=== PATIENT | male | born 1945 | race African-American/Black ===

== ENCOUNTER 2025-03-05 16:18 | Emergency (ER) | payer MEDICARE ==
[~2025-03-05] VITALS: Ht 160 cm; Wt 70.0 kg
[2025-03-05 16:39] VITALS: TEMP 98.2
[2025-03-05 19:32] LABS: PLATELET COUNT (AUTO) 257 K/uL (150-450); RED BLOOD CELL COUNT(AUTO) 4.76 MIL/uL (4.50-5.90); RED CELL DISTRIBUTION WIDTH 13.6 % (11.5-14.5); WHITE BLOOD COUNT (AUTO) 8.3 K/uL (4.5-11.0)
[2025-03-05 19:42] LABS: CALCIUM, TOTAL 9.3 mg/dL (8.8-10.5); CREATININE 0.95 mg/dL (0.60-1.30); GLOMERULAR FILTR. RATE CALC > 60 mL/min (>60); GLUCOSE,RANDOM 87 mg/dL (70-110); SODIUM SERUM 139 mmol/L (136-145); UREA NITROGEN, BLOOD 9 mg/dL (7-18)
[2025-03-05] MEDS: POVIDONE-IODINE 10% 15 ML SOLUTION UD TP ONE (20:53)
[2025-03-05] MEDS: LIDOCAINE 1% 10 ML VIAL ID ONE (20:55)
[2025-03-05] MEDS: SULFAMETHOX/TRIMETH DS 800-160 MG/TABLET PO ONE (20:55)
[2025-03-05] MEDS: ACETAMINOPHEN 500 MG TABLET PO ONE (20:56)
[2025-03-05] MEDS ORDERED: SULF1TAB94 PO (21:29)
[2025-03-05] MEDS ORDERED: IBUP-1492 PO (21:29)
[2025-03-05] MEDS ORDERED: CLIN-26 PO (21:29)
[2025-03-05 21:40] VITALS: BP 156/78; PULSE 62; RESP 18; O2SAT 97
== END 2025-03-05 21:54 | disposition home or self-care (01) ==
LOC: EMS 16:21
DX: L02.811 Cutaneous abscess of head [any part, except face] (principal); I10 Essential (primary) hypertension; Z98.890 Other specified postprocedural states
CPT/HCPCS: 99284; 10060; 80048; 85025; 36415; J3490; A4247